=== PATIENT | female | born 1965 | race Caucasian/White ===

== ENCOUNTER 2023-11-12 09:56 | Emergency (ER) | payer OTHER, SELFPAY ==
[2023-11-12 10:10] VITALS: BP 141/90; PULSE 73; RESP 20; TEMP 36.6; O2SAT 98
--- NOTE | 2023-11-12 10:21 | ED.EYEPROB ---
HPI - Eye Problem General Chief complaint: Eye Problems Stated complaint: NAIL GLUE IN EYE Time Seen by Provider: 11/12/23 10:04 Source: patient Mode of arrival: ambulatory Limitations: no limitations History of Present Illness HPI Narrative: Yulia is a 58-year-old female patient presenting to the ER today with complaints of accidentally putting fingernail glue into her left eye. This occurred just prior to arrival. States she has irrigated her eye out with water. States that when she put the glue in her eye it burned instantly. Does have a contact still in her eye. Related Data Home Medications Medication Instructions Recorded Confirmed lisinopril 10 mg tablet 10 mg PO DAILY 05/05/21 05/05/21 sertraline 100 mg tablet (Zoloft) 200 mg PO DAILY 05/05/21 05/05/21 valacyclovir 500 mg tablet 500 mg PO DAILY 05/05/21 05/05/21 (Valtrex) Allergies Allergy/AdvReac Type Severity Reaction Status Date / Time No Known Allergies Allergy Verified 05/05/21 14:40 Review of Systems Review of Systems: Pertinent positives per HPI. Patient denies any fever, chills, rash, headache, dizziness, cough, runny nose, sore throat, shortness of breath, chest pain, palpitations, nausea, vomiting, diarrhea, constipation, abdominal pain, or any urinary issues. PMFSH Past Medical History Medical History Anxiety Social History Social History Smoking status: Never smoker Alcohol intake: current Substance use: never Comments At the time of my signature, I reviewed and agree with the nursing past medical, surgical, social, and family history. There is no relevant family history pertinent to the patient complaint. Exam Narrative: General: Well-developed, well nourished, in no apparent distress Head: Normocephalic, atraumatic Eyes: Pupils equally round and reactive to light bilaterally, EOM intact, right sclera and conjunctive clear, left sclera and conjunctiva injected, dry glue noted in the lateral canthus, watery discharge, lateral upper and lower eyelash clumped with dried glue, removed contact using a sterile tip Ears: TMs intact and clear, ear canals clear, no drainage, grossly hearing normal. Nose: Nares patent, no discharge, no inflammation, no sinus tenderness. Mouth: Oropharynx without lesions or masses, good dentition, MMM. Neck: Supple, trachea midline, no enlargement of anterior or posterior cervical nodes, no thyroid masses or goiter palpable. Cardio: Regular rate and rhythm, s1 and s2 normal, no murmur appreciated. Resp: Clear to auscultation bilaterally anteriorly and posteriorly, no rhonchi, rales, wheezing or rubs Course Course Emergency Course: Portions of this record may have been created with voice recognition software. Vital Signs Vital signs: Vital Signs Temperature 36.6 C 11/12/23 10:10 Pulse Rate 73 11/12/23 10:10 Respiratory Rate 20 11/12/23 10:10 Blood Pressure 141/90 H 11/12/23 10:10 Pulse Oximetry 98 11/12/23 10:10 Oxygen Delivery Room Air 11/12/23 10:10 Temperature 36.6 C 11/12/23 10:10 Pulse Rate 60 11/12/23 12:26 Respiratory Rate 18 11/12/23 12:26 Blood Pressure 127/87 11/12/23 12:26 Pulse Oximetry 96 11/12/23 12:26 Oxygen Delivery Room Air 11/12/23 10:10 Vital signs reviewed Procedures Other Procedure Procedure 1: Other Procedure: Topical anesthetic was instilled with good anesthesia using 2gtt of opth anesthetic agent (tetracaine). Fluorescein stain of the L eye was performed without uptake of dye. No epithelial defect was noted. NO FB, ulcer or dendritic lesions. Upper lid was everted and no FB or lesions were noted. NO Vikram sign. Normal saline irrigation eye solution was performed and the patient tolerated the procedure well, no adverse reaction or complications. Noted intraocular pressure readings.
[2023-11-12] MEDS: ERYTHROMYCIN OPHTH OINTMENT 1 GM TUBE 1 APPLIC EACH EYE (11:21)
[2023-11-12] MEDS: HYDROcodone/acetaminophen (*CRX) 7.5-325 MG TABLET 1 TAB PO (11:26)
[2023-11-12 12:26] VITALS: BP 127/87; PULSE 60; RESP 18; O2SAT 96
--- NOTE | 2023-11-12 13:00 | PC.NURSE ---
Report given to diallo SANDERS at [place]
== END 2023-11-12 13:07 | disposition short-term general hospital (02) ==
PROVIDERS: Emergency Provider Nurse Practitioner Family
DX: T15.92XA Foreign body on external eye, part unspecified, left eye, initial encounter (principal); S05.02XA Injury of conjunctiva and corneal abrasion without foreign body, left eye, initial encounter; H53.8 Other visual disturbances; F41.9 Anxiety disorder, unspecified; W44.8XXA Other foreign body entering into or through a natural orifice, initial encounter
CPT/HCPCS: 99283; A9270; J7120